=== PATIENT | male | born 1945 | race African-American/Black ===

== ENCOUNTER 2016-12-01 07:04 | Emergency (ER) | payer MEDICAID, OTHER ==
[~2016-12-01] VITALS: Ht 167.6 cm; Wt 91.0 kg
[~2016-12-01 07:04] MED LIST: TERA5CAP3 PO
[2016-12-01 07:05] VITALS: BP 228/111; PULSE 55; RESP 16; TEMP 97.9; O2SAT 95
[2016-12-01 07:27] VITALS: BP 195/98; PULSE 66; RESP 16; O2SAT 94
[2016-12-01] MEDS ORDERED: SODIUM CHLORIDE 0.9% FLUSH 5 ML FLUSH IVF PRN (07:30)
[2016-12-01] MEDS ORDERED: TAMS0.4C4 PO (07:32)
--- NOTE | 2016-12-01 07:37 | PD ---
HPI Chief Complaint: Complaint Time Seen by Provider: 07:21 Travel History International Travel<30 days: No Contact w/Intl Traveler<30days: No History of Present Illness HPI Patient is a 71-year-old male who presents to emergency room with complaints of acute urinary retention. Patient reports that he has history of BPH, reports that since 7 PM last night, he has not been able to pass his urine. Patient reports that he tried to urinate all night but could not. Reports that he has history of urinary retention in the past, he does take Flomax for BPH. Patient does follow with Dr. Anaya with urologist and he was last seen on November 22, 2016. Patient with no other complaints at this time. PFSH Past Medical History Cerebrovascular Accident: Yes (NO DEFICITS) Genitourinary: Yes (Enlarged prostate) Hypertension: Yes Past Surgical History Eye Surgery: Yes (Bilateral cataract removal) Family History Family History: Negative Social History Alcohol Use: No Tobacco Use: No Substance Use: No Allergies-Medications (Allergen,Severity, Reaction): Uncoded Allergies: rapaflow (Allergy, Intermediate, Rash, 01/29/16) Reported Meds & Prescriptions Reported Meds & Active Scripts Active Reported Tamsulosin (Tamsulosin HCl) 0.4 Mg Cap 0.4 Mg PO DAILY Review of Systems General / Constitutional: No: Fever Eyes: No: Visual changes HENT: No: Headaches Cardiovascular: No: Chest Pain or Discomfort Respiratory: No: Shortness of Breath Gastrointestinal: No: Nausea, Vomiting, Abdominal Pain Genitourinary: Positive: Decreased Urinary Output, Other (urinary retention), No: Dysuria Musculoskeletal: No: Pain Skin: No Rash Neurologic: No: Weakness Psychiatric: No: Depression Endocrine: No: Polydipsia Hematologic/Lymphatic: No: Easy Bruising Physical Exam Narrative GENERAL: No acute distress, nontoxic SKIN: Warm and dry. HEAD: Atraumatic. Normocephalic. EYES: No injection or drainage. ENT: No nasal bleeding or discharge. Mucous membranes pink and moist. NECK: Trachea midline. No JVD. CARDIOVASCULAR: Regular rate and rhythm. No murmur appreciated. RESPIRATORY: No accessory muscle use. Clear to auscultation. Breath sounds equal bilaterally. GASTROINTESTINAL: Abdomen soft, tender to his suprapubic area. MUSCULOSKELETAL: No obvious deformities. No clubbing. No cyanosis. No edema. NEUROLOGICAL: Awake and alert. No obvious cranial nerve deficits. Motor grossly within normal limits. Normal speech. PSYCHIATRIC: Appropriate mood and affect; insight and judgment normal. Data Data Last Documented VS Vital Signs Date Time Temp Pulse Resp B/P Pulse Ox O2 Delivery O2 Flow Rate FiO2 12/01/16 08:32 81 18 198/91 96 Room Air 12/01/16 07:05 97.9 Orders Basic Metabolic Panel (Bmp) (12/01/16 07:21) Urinalysis - C+S If Indicated (12/01/16 07:21) Iv Access Insert/Monitor (12/01/16 07:21) Sodium Chloride 0.9% Flush (Ns Flush) (12/01/16 07:30) Urinary Catheter Insert/Apply (12/01/16 07:21) Sodium Chlor 0.9% 1000 Ml Inj (Ns 1000 M (12/01/16 08:00) Potassium Cl 40 Meq/30 Ml Liq (Kcl 40 Me (12/01/16 08:30) Labs Laboratory Tests Test 12/01/16 12/01/16 07:35 07:40 Urine Color YELLOW Urine Turbidity CLEAR Urine pH 5.5 Urine Specific [place] 1.008 Urine Protein NEG mg/dL Urine Glucose (UA) NEG mg/dL Urine Ketones NEG mg/dL Urine Occult Blood MOD Urine Nitrite NEG Urine Bilirubin NEG Urine Urobilinogen LESS THAN 2.0 MG/DL Urine Leukocyte Esterase SMALL Urine RBC /hpf Urine WBC 2 /hpf Urine Bacteria RARE /hpf Microscopic Urinalysis Comment CULT NOT INDICATED Sodium Level 133 MEQ/L Potassium Level 3.2 MEQ/L Chloride Level 100 MEQ/L Carbon Dioxide Level 23.2 MEQ/L Anion Gap 10 MEQ/L Blood Urea Nitrogen 9 MG/DL Creatinine 0.97 MG/DL Estimat Glomerular Filtration 93 ML/MIN Rate Random Glucose 170 MG/DL Calcium Level 8.7 MG/DL [facility] Medical Decision Making Medical Screen Exam Complete: Yes Emergency Medical Condition: Yes Interpretation(s) Vital Signs Date Time Temp Pulse Resp B/P Pulse Ox O2 Delivery O2 Flow Rate FiO2 12/01/16 07:05 97.9 55 16 228/111 95 Differential Diagnosis Acute urinary retention, UTI, renal failure Narrative Course Patient is a 71-year-old male who presents to emergency room with complaints of acute urinary retention. Patient reports that he has history of BPH, has history of acute urinary retention in the past. Patient does follow Dr. Guillen in office with urology. Reports that he has not been able to urinate since last night. Reports that the last time he urinated, it was around 7pm last night. Patient presents to ER with c/o of acute urinary retention. Patient with increased fullness to lower abdomen, Chan catheter ordered. BMP ordered to check renal function, UA ordered to check possible UTI Chan catheter replaced, patient with greater than 1000 mL's of urine from Chan catheter bag. BMP Sodium 133 Chloride 100 Potassium 3.2 BUN 9 Creatinine 0.97 Glucose 170 UA Moderate occult blood, small leuk esterase, rare bacteria, negative nitrites Chan catheter draining clear urine. Patient will follow-up with his urologist on Saturday and will return to emergency room as needed. Diagnosis Primary Impression: Urinary retention Patient Instructions: General Instructions Additional Instructions: Please call your urologist first thing in the morning for earliest follow-up Return to emergency room as needed Disposition: 01 DISCHARGE HOME Condition: Stable Denise Bradley DO Dec 01, 2016 07:26
[2016-12-01] MEDS ORDERED: SODIUM CHLOR 0.9% 1000 ML INJ 1,000 ML IV ONE (08:00)
[2016-12-01 08:04] LABS: BICARBONATE 23.2 MEQ/L (21.0-32.0)
[2016-12-01 08:06] LABS: BACTERIA, URINE RARE /hpf; BLOOD, URINE MOD (NEG); GLUCOSE,URINE NEG (NEG); KETONE, URINE NEG (NEG); NITRITE,URINE NEG (NEG); PH, URINE 5.5 (5.0-8.5); URINE COLOR YELLOW (YELLW/STRAW)
[2016-12-01 08:18] LABS: COMMENT (UR) CULT NOT INDICATED; CULTURE IF INDICATED CULT NOT INDICATED
[2016-12-01 08:20] LABS: POTASSIUM 3.2 MEQ/L (3.5-5.1)
[2016-12-01] MEDS ORDERED: POTASSIUM CL 40 MEQ/30 ML LIQ UDC PO ONE (08:30)
[2016-12-01 08:32] VITALS: BP 198/91; PULSE 81; RESP 18; O2SAT 96
== END 2016-12-01 09:08 | disposition home or self-care (01) ==
LOC: NEPC 07:04
DX: R33.9 Retention of urine, unspecified (principal)
CPT/HCPCS: 51702; 80048; 81001; 96360; 99283; J7030